=== PATIENT | female | born 1965 ===

== ENCOUNTER 2021-07-03 16:00 | Emergency (ER) | payer MEDICAID, OTHER ==
[~2021-07-03] VITALS: Ht 170.2 cm; Wt 113.4 kg
[2021-07-03 16:33] VITALS: BP 98/51
== END 2021-07-03 17:49 | disposition left against medical advice (07) ==
LOC: ER 16:00
DX: F41.9 Anxiety disorder, unspecified (principal); R20.0 Anesthesia of skin; Z53.21 Procedure and treatment not carried out due to patient leaving prior to being seen by health care provider